=== PATIENT | female | born 1985 | race American Indian/Alaskan Native ===

== ENCOUNTER 2019-04-27 22:14 | Emergency (ER) | payer MEDICAID ==
[2019-04-27] MEDS ORDERED: Sodium Chloride 0.9% 10 ML Syringe FLUSH PRN (22:15)
[2019-04-27] MEDS ORDERED: Ketorolac 60 MG/2 ML SDV IM ONE (22:44)
[2019-04-27] MEDS ORDERED: Ondansetron 4 MG Tab.DIS PO ONE (22:44)
[2019-04-27] MEDS ORDERED: Morphine 2 MG/ML Syringe IM ONE (22:47)
--- NOTE | 2019-04-27 22:55 | EDM.PDOC ---
ED HPI GENERAL MEDICAL PROBLEM - General Chief Complaint: General Stated Complaint: Abdominal pain Time Seen by Provider: 04/27/19 22:15 Source of Information: Reports: Patient History Limitations: Reports: No Limitations - History of Present Illness INITIAL COMMENTS - FREE TEXT/NARRATIVE: Patient comes to ER with RUQ pain. Says she has been told she has poor gallbladder function and "slush" in the gallbladder. Was supposed to have it surgically removed at one point but says she could not get her truck to start that day and could not make it in for the procedure. Reports that the last time she had significant issues she was in [place] and was seen at [facility]. Since then she has done relatively well and had not followed up. 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 In the winter/when work is slow they usually return to [place] where they reside at the [facility]. No consistent medical care. Patient denies chance of . No fevers or chills. Had one episode of emesis this evening. Otherwise has been eating and drinking well. No bowel changes or urinary changes/UTI complaints. Pain does not radiate. Has had on/ off issues with this for over a year. She admits to eating pizza and feels that it may have been trigger. Patient also regularly consumes ETOH. Records obtained from [facility] show that an US was performed during her visit in August and no evidence of cholecystitis noted. They did note presence of sludge in GB. Labs were unremarkable at that time other than mild increase in Lipase and some elevation of LFTs. She was instructed to follow up with surgery to be evaluated for possible cholecystectomy. Patient was seen there in Jul 2018 due to ETOH intoxication and combativeness. Patient admits to chronic ETOH use. States she is trying to cut down use. Denies DTs/withdrawal symptoms from ETOH - Related Data Allergies Allergy/AdvReac Type Severity Reaction Status Date / Time No Known Allergies Allergy Verified 04/27/19 22:15 Home Meds: Home Meds . [No Known Home Meds] 04/27/19 [History] Past Medical History HEENT History: Reports: Other (See Below) (Poor dental health) Gastrointestinal History: Reports: Other (See Below) (Fatty liver, biliary sludge in gallbladder) Psychiatric History: Reports: Addiction (ETOH) Endocrine/Metabolic History: Reports: Obesity/BMI 30+ - History Comment History Comment: Patient does not follow up for routine medical care. Social & Family History - Family History Other Family History: Patient states that both parents from alcohol use related disease. - Tobacco Use Smoking Status *Q: Never Smoker - Caffeine Use Caffeine Use: Reports: Coffee - Alcohol Use Alcohol Use History: Yes Alcohol Use in Last Twelve Months: Yes Alcohol Use Frequency: Daily Alcohol Use Comment: Won't be specific on ETOH consumption. Only says she is cutting down and implies that she does not drink daily. - Recreational Drug Use Recreational Drug Use: Yes Drug Use in Last 12 Months: Yes Recreational Drug Type: Reports: Marijuana/Hashish, Methamphetamine ED ROS GENERAL - Review of Systems Review Of Systems: See Below Constitutional: Reports: Decreased Appetite, Weight Gain. Denies: Fever, Chills , Malaise, Weakness, Fatigue, Night Sweats, Diaphoresis, Weight Loss Respiratory: Reports: No Symptoms. Denies: Shortness of Breath, Pleuritic Chest Pain, Cough Cardiovascular: Reports: No Symptoms. Denies: Chest Pain GI/Abdominal: Reports: Abdominal Pain, Decreased Appetite, Nausea, Vomiting, Other (RUQ feels full). Denies: Black Stool, Bloody Stool, Constipation, Diarrhea, Difficulty Swallowing, Hematemesis, Hematochezia : Reports: No Symptoms. Denies: Flank Pain Musculoskeletal: Reports: No Symptoms Skin: Reports: No Symptoms Neurological: Reports: No Symptoms Psychiatric: Reports: No Symptoms ED EXAM, GENERAL - Physical Exam Exam: See Below Exam Limited By: No Limitations General Appearance: Alert, Moderate Distress, Obese, Other (Smells of ETOH faintly) Eye Exam: Bilateral Eye: EOMI, PERRL Nose: No: Nasal Deformity, Nasal Swelling, Nasal Drainage Throat/Mouth: Normal Lips, Normal Voice, No Airway Compromise, Other (Poor dental health) Head: Atraumatic, Normocephalic Neck: Supple, Full Range of Motion Respiratory/Chest: No Respiratory Distress, Lungs Clear, Normal Breath Sounds, No Accessory Muscle Use, Chest Non-Tender Cardiovascular: Normal Peripheral Pulses, Regular Rate, Rhythm, No Edema, No Murmur GI/Abdominal: Normal Bowel Sounds, Soft, No Distention, Tender (RUQ). No: Guarding, Rigid, Rebound, Hernia (Female) Exam: Deferred Rectal (Female) Exam: Deferred Back Exam: No: CVA Tenderness (L), CVA Tenderness (R), Muscle Spasm, Paraspinal Tenderness, Vertebral Tenderness Extremities: Non-Tender, Normal Capillary Refill Neurological: Alert, Oriented, Normal Cognition, Normal Gait, No Motor/Sensory Deficits Psychiatric: Normal Affect, Normal Mood Skin Exam: Warm, Dry, Intact, Normal Color Course - Vital Signs Last Recorded V/S: Last Vital Signs Temp 36.7 C 04/27/19 22:16 Pulse 69 04/27/19 22:16 Resp 20 04/27/19 22:16 BP 102/53 L 04/27/19 22:16 Pulse Ox 98 04/27/19 22:16 - Orders/Labs/Meds Orders: Active Orders 24 hr Category Date Time Status Abdomen 2V AP Flat Upright [CR] Stat Exams 04/27/19 22:43 Ordered Labs: Laboratory Tests 04/27/19 04/27/19 04/27/19 Range/Units 22:30 22:30 22:35 WBC 6.9 (4.0-10.2) K/uL RBC 4.01 (3.77-5.09) M/uL Hgb 13.4 (11.7-15.5) g/dL Hct 39.5 (34.0-46.0) % MCV 98.5 H (84.0-98.0) fL MCH 33.4 H (28.2-33.3) pg MCHC 33.9 (31.7-36.0) g/dL RDW 12.3 (11.2-14.1) % Plt Count 159 (150-350) K/uL Neut % (Auto) 60.6 (45.0-80.0) % Lymph % (Auto) 25.3 (10.0-50.0) % Giles % (Auto) 8.0 (2.0-14.0) % Eos % (Auto) 5.7 H (0.0-5.0) % Baso % (Auto) 0.4 (0.0-2.0) % Neut # (Auto) 4.18 (1.40-7.00) K/uL Lymph # (Auto) 1.74 (0.50-3.50) K/uL Giles # (Auto) 0.55 (0.00-1.00) K/uL Eos # (Auto) 0.39 (0.00-0.50) K/uL Baso # (Auto) 0.03 (0.00-0.20) K/uL Sodium (136-145) mmol/L Potassium (3.5-5.1) mmol/L Chloride (98-107) mmol/L Carbon Dioxide (21.0-32.0) mmol/L BUN (7-18) mg/dL Creatinine (0.51-1.17) mg/dL Est Cr Clr Drug Dosing mL/min Estimated GFR (MDRD) mL/min Glucose (74-106) mg/dL Calcium (8.5-10.1) mg/dL Total Bilirubin (0.2-1.0) mg/dL AST (15-37) U/L ALT (12-78) U/L Alkaline Phosphatase (46-116) IU/L Total Protein (6.4-8.2) g/dL Albumin (3.4-5.0) g/dL Amylase (25-115) U/L Lipase (73-393) U/L Specimen Type Urinblad Urine Color Yellow Urine Appearance Clear Urine pH 7.0 (5.0-9.0) Ur Specific [place] 1.020 (1.005-1.030) Urine Protein Negative (NEGATIVE) mg/dL Urine Glucose (UA) Negative (NEGATIVE) mg/dL Urine Ketones Negative (NEGATIVE) mg/dL Urine Occult Blood Small H (NEGATIVE) Urine Nitrite Negative (NEGATIVE) Urine Bilirubin Negative (NEGATIVE) Urine Urobilinogen 2.0 H (0.2-1.0) E.U./dL Ur Leukocyte Esterase Negative (NEGATIVE) Urine RBC 0-5 /HPF Urine WBC 0-5 /HPF Ur Epithelial Cells Few /LPF Urine Bacteria Few (NONE TO FEW) /HPF Urine HCG, Qual Urine Opiates Screen Negative (NEGATIVE) Urine Methadone Screen Negative (NEGATIVE) U Acetaminophen Screen Negative (NEGATIVE) Ur Barbiturates Screen Negative (NEGATIVE) Ur Tricyclics Screen Negative (NEGATIVE) Ur Phencyclidine Scrn Negative (NEGATIVE) Ur Amphetamine Screen Negative (NEGATIVE) U Methamphetamines Scrn Positive H (NEGATIVE) U Benzodiazepines Scrn Negative (NEGATIVE) U Cocaine Metab Screen Negative (NEGATIVE) U Marijuana (THC) Screen Positive H (NEGATIVE) Ethyl Alcohol (0.000-0.080) g/dL 04/27/19 04/27/19 04/27/19 Range/Units 22:35 22:43 22:55 WBC (4.0-10.2) K/uL RBC (3.77-5.09) M/uL Hgb (11.7-15.5) g/dL Hct (34.0-46.0) % MCV (84.0-98.0) fL MCH (28.2-33.3) pg MCHC (31.7-36.0) g/dL RDW (11.2-14.1) % Plt Count (150-350) K/uL Neut % (Auto) (45.0-80.0) % Lymph % (Auto) (10.0-50.0) % Giles % (Auto) (2.0-14.0) % Eos % (Auto) (0.0-5.0) % Baso % (Auto) (0.0-2.0) % Neut # (Auto) (1.40-7.00) K/uL Lymph # (Auto) (0.50-3.50) K/uL Giles # (Auto) (0.00-1.00) K/uL Eos # (Auto) (0.00-0.50) K/uL Baso # (Auto) (0.00-0.20) K/uL Sodium 141 (136-145) mmol/L Potassium 3.5 (3.5-5.1) mmol/L Chloride 105 (98-107) mmol/L Carbon Dioxide 27.2 (21.0-32.0) mmol/L BUN 4 L (7-18) mg/dL Creatinine 0.54 (0.51-1.17) mg/dL Est Cr Clr Drug Dosing 141.40 mL/min Estimated GFR (MDRD) > 60 mL/min Glucose 111 H (74-106) mg/dL Calcium 8.5 (8.5-10.1) mg/dL Total Bilirubin 0.8 (0.2-1.0) mg/dL AST 75 H (15-37) U/L ALT 51 (12-78) U/L Alkaline Phosphatase 153 H (46-116) IU/L Total Protein 7.8 (6.4-8.2) g/dL Albumin 2.8 L (3.4-5.0) g/dL Amylase 61 (25-115) U/L Lipase 447 H (73-393) U/L Specimen Type Urine Color Urine Appearance Urine pH (5.0-9.0) Ur Specific Mont[place] (1.005-1.030) Urine Protein (NEGATIVE) mg/dL Urine Glucose (UA) (NEGATIVE) mg/dL Urine Ketones (NEGATIVE) mg/dL Urine Occult Blood (NEGATIVE) Urine Nitrite (NEGATIVE) Urine Bilirubin (NEGATIVE) Urine Urobilinogen (0.2-1.0) E.U./dL Ur Leukocyte Esterase (NEGATIVE) Urine RBC /HPF Urine WBC /HPF Ur Epithelial Cells /LPF Urine Bacteria (NONE TO FEW) /HPF Urine HCG, Qual Negative Urine Opiates Screen (NEGATIVE) Urine Methadone Screen (NEGATIVE) U Acetaminophen Screen (NEGATIVE) Ur Barbiturates Screen (NEGATIVE) Ur Tricyclics Screen (NEGATIVE) Ur Phencyclidine Scrn (NEGATIVE) Ur Amphetamine Screen (NEGATIVE) U Methamphetamines Scrn (NEGATIVE) U Benzodiazepines Scrn (NEGATIVE) U Cocaine Metab Screen (NEGATIVE) U Marijuana (THC) Screen (NEGATIVE) Ethyl Alcohol 0.074 (0.000-0.080) g/dL Meds: Medications Discontinued Medications Generic Name Dose Route Start Last Admin Trade Name Freq PRN Reason Stop Dose Admin Acetaminophen/Codeine Phosphate 2 tab 04/27/19 23:42 04/27/19 23:52 Tylenol With Codeine No.3 300mg/30mg PO 04/27/19 23:43 2 tab ONETIME ONE Administration Ketorolac Tromethamine 60 mg 04/27/19 22:44 04/27/19 22:54 Toradol IM 04/27/19 22:45 60 mg ONETIME ONE Administration Morphine Sulfate 2 mg 04/27/19 22:47 04/27/19 23:52 Morphine IM 04/27/19 22:48 Not Given ONETIME ONE Ondansetron HCl 4 mg 04/27/19 22:44 04/27/19 22:54 Zofran Odt PO 04/27/19 22:45 4 mg ONETIME ONE Administration Sodium Chloride 10 ml 04/27/19 22:15 Saline Flush FLUSH ASDIRECTED PRN Keep Vein Open - Radiology Interpretation Free Text/Narrative:: Xray of abdomen taken, gallbladder is seen, distended appearance No air/fluid levels or signs of constipation noted - Re-Assessments/Exams Free Text/Narrative Re-Assessment/Exam: Vital signs stable. Afebrile. WBC normal. UA unremarkable, negative HCG Drug screen + for Meth/THC Chem showed AST/ALk phos/lipase elevated. Amylase and bilirubin normal. ETOH 0.07 Discussed ETOH use at length, recommended treatment and discontinuation of use. Discussed + Meth result. Patient says last used last weekend. Patient had improved level of pain after Toradol IM and Zofran, however still appeared uncomfortable. Outline of gallbladder noted on xray. She refused IV hydration. She also refused MS IM/admission to observation and stated that she wanted to go home to the motel where she is staying. She was agreeable with plan to return to clinic tomorrow to be re-evaluated and have updated US study performed. Single dose of T#3 given to patient. Given that she is at risk for continued ETOH use and the potential for lethal outcome if ETOH and narcotics are mixed, we were not comfortable sending her home with an outpatient pack bottle for PRN use. Clear liquid diet recommended for the next 24-48 hours. Consider referral to surgeon this week for cholecystectomy after patient is re- evaluated at clinic tomorrow and has US/additional imaging as needed performed. Departure - Departure Time of Disposition: 23:44 Disposition: Home, Self-Care 01 Condition: Good Clinical Impression: Right upper quadrant abdominal pain EtOH dependence Qualifiers: Substance use status: uncomplicated Qualified Code(s): F10.20 - Alcohol dependence, uncomplicated - Discharge Information *PRESCRIPTION DRUG MONITORING PROGRAM REVIEWED*: Yes *COPY OF PRESCRIPTION DRUG MONITORING REPORT IN PATIENT CARA: Yes Instructions: Biliary Colic, Adult Referrals: PCP,None [Primary Care Provider] - Forms: ED Department Discharge Additional Instructions: Stay hydrated, rest. Follow up at clinic tomorrow for recheck and to have ultrasound study performed. Additional pain meds can be discussed at that time. Strongly consider attending treatment for alcohol dependency as soon as possible. Some of your liver tests are elevated and you have fatty liver infiltration. Drinking alcohol only makes this worse and can lead to permanent liver failure. Your gallbladder may need to be removed and the clinic can refer you to the surgeon if you will be willing to stay in the area and have the surgery and post-op care performed. Stop using Meth/illicit drugs. Nothing good can come from that. Avoid food for the next 24-48 hours. Clear liquid diet is recommended. Otherwise food will trigger gallbladder pain. Don't drink ETOH while taking narcotic medications as it can be a lethal combination. Follow up in the ER as needed if worsening problems develop. - My Orders Last 24 Hours: My Active Orders 04/27/19 22:43 Abdomen 2V AP Flat Upright [CR] Stat - Assessment/Plan Last 24 Hours: My Active Orders 04/27/19 22:43 Abdomen 2V AP Flat Upright [CR] Stat
[2019-04-27 23:13] LABS: CHLORIDE,CL 105 mmol/L (98-107); SODIUM,NA 141 mmol/L (136-145)
[2019-04-27 23:21] LABS: BARBITURATE SCREEN,URINE NEGATIVE (NEGATIVE); BENZODIAZEPINES SCREEN,URINE NEGATIVE (NEGATIVE); TCA SCREEN,URINE NEGATIVE (NEGATIVE); THC SCREEN,URINE 50 NG/ML POSITIVE (NEGATIVE)
[2019-04-27] MEDS ORDERED: Acetaminophen/Codeine 300-30 MG Tab PO ONE (23:42)
== END 2019-04-28 00:01 | disposition home or self-care (01) ==
LOC: LL.ED 22:14
DX: R10.11 Right upper quadrant pain (principal); F10.20 Alcohol dependence, uncomplicated; Y90.0 Blood alcohol level of less than 20 mg/100 ml; E66.9 Obesity, unspecified; Z68.29 Body mass index [BMI] 29.0-29.9, adult
CPT/HCPCS: 36415; 74019; 80053; 80305-QW; 81001; 81025; 82150; 83690; 85025; 96372; 99284-25; A9270-GY; G0480; J1885